=== PATIENT | female | born 1940 | race Caucasian/White ===

== ENCOUNTER 2018-03-03 15:14 | Emergency (ER) | payer OTHER ==
[~2018-03-03] VITALS: Ht 157.5 cm; Wt 39.2 kg
[~2018-03-03 15:14] MED LIST: ASPIRIN81 M1 PO; CENTURY PO; CLONIDINE HCL0.1 MG PO; Combivent IH; DELTASONE20 MG PO; Dulcolax PO; Dulcolax PR; EFFEXOR75 MG PO; Ecotrin PO; FLOVENT INHALER; FOLVITE1 M1 PO; Feosol PO; Flonase BOTH NARES; GLIPIZIDE5 M1 PO; INDERAL20 MG PO; Inderal PO; KLOR-CON M2020 MEQ PO; KlonoPIN PO; LASIX20 MG PO; LIDODERM 5% P1 PATCH TD; LOPID600 M1 PO; LOVENOX40 MG/0.4 SC; Levaquin PO; METFORMIN HCL1000 MG PO; Maalox, Mylanta PO; Milk Of Magnesia,MOM PO; NEXIUM40 MG PO; NORVASC10 MG PO; OYST-CAL D, OS500 M1 PO; OxyCONTIN PO; PRILOSEC OTC20 M1 PO; PROMETHAZINE HC25 M1 PO; PROTONIX40 MG PO; PROVENTIL17 GM IH; Proventil,Ventolin H IH; REVATIO20 MG PO; Remove Lidoderm Patc TD; Robitussin DM PO; SENOKOT S,PE1 TABLET PO; SPIRIVA1 INHALATI IH; Singulair PO; THERAGRAN1 TABLET PO; TRAMADOL HCL50 MG PO; TYLENOL EXTRA500 MG PO; Tessalon Perle PO; Tylenol Regular Stre PO; ULTRAM50 MG PO; Vitamin B Complex PO; XANAX0.5 MG PO; ZANTAC300 MG PO; Zestril,Prinivil PO; [UNRECOGNIZED DRUG - OTHER]; celeXA PO; oxyCODONE PO
[2018-03-03 15:55] LABS: BASOPHIL (%) 0.6 % (0-1); BASOPHIL COUNT 0.1 K/uL (0-0.1); EOSINOPHIL (%) 1.7 % (0-5); EOSINOPHIL COUNT 0.1 K/uL (0-0.3); HEMATOCRIT 40.9 % (36.0-46.0); HEMOGLOBIN 13.7 G/DL (11.9-15.5); IMMATURE GRANULOCYTE (%) 0.7 % (0.0-0.7); LYMPHOCYTE (%) 13.6 % (15-42); LYMPHOCYTE COUNT 1.1 K/uL (1.0-2.8); MCH 30.7 PG (29.0-34.0); MCHC 33.5 G/DL (30.0-36.0); MCV 91.7 FL (83-99); MONOCYTE (%) 14.7 % (3-12); MONOCYTE COUNT 1.2 K/uL (0-0.8); NEUTROPHIL (%) 68.7 % (45-76); NEUTROPHIL COUNT 5.7 K/uL (1.8-6.4); PLATELET COUNT 230 K/uL (156-360); RBC DIS.WIDTH-CV 14.5 % (11.8-14.6); RBC DIS.WIDTH-SD 48.3 % (39-53); RED BLOOD COUNT 4.46 M/uL (3.80-5.20); WHITE BLOOD COUNT 8.3 K/uL (4.1-10.2)
[2018-03-03 16:05] LABS: ALBUMIN 3.8 g/dL (3.2-4.8); CHLORIDE 103 mEq/L (99-109); POTASSIUM 4.9 mEq/L (3.7-5.4); SODIUM 134 mEq/L (136-147)
[2018-03-03 16:06] LABS: MAGNESIUM 2.2 mg/dL (1.3-2.7)
[2018-03-03 16:08] LABS: GLUCOSE 105 mg/dL (70-99); TOTAL PROTEIN 6.5 g/dL (6.4-8.3)
[2018-03-03 16:10] LABS: TOTAL BILIRUBIN 0.4 mg/dL (0.0-1.0)
[2018-03-03 16:11] LABS: ALKALINE PHOSPHATASE 55 IU/L (3-129)
[2018-03-03 16:12] LABS: CREATININE 0.8 mg/dL (0.6-1.3); GFR ESTIMATE (CALCULATED) > 59 mL/min/
[2018-03-03 16:13] LABS: AST (GOT) 91 IU/L (2-34); UREA NITROGEN (BUN) 24 mg/dL (9-23)
[2018-03-03 16:14] LABS: ALT (GPT) 38 IU/L (3-49)
[2018-03-03 16:17] LABS: TROP-I INTERPRETATION NEGATIVE; TROPONIN-I 0.02 ng/mL (0.0-0.30)
[2018-03-03 17:31] LABS: THYROTROPIN (TSH) 1.9 MIU/L (0.4-5.5)
[2018-03-03 17:55] LABS: APPEARANCE SL.HAZY ((CLEAR)); BILIRUBIN NEGATIVE; BLOOD NEGATIVE; COLOR YELLOW ((YELLOW)); GLUCOSE (STRIP) NEGATIVE; KETONES NEGATIVE; LEUKOCYTES TRACE; NITRITE NEGATIVE; PROTEIN (STRIP) 30; UROBILINOGEN 0.2 MG/DL (0.2-1.0)
[2018-03-03 18:09] LABS: BACTERIA NONE SEEN /HPF; EPITHELIAL CELLS RARE /HPF; HYALINE CASTS 0-5 /LPF; MUCUS NONE SEEN /LPF; RED BLOOD CELLS 0-5 /HPF (0-5); UCUL ADDED? YES
[2018-03-03 23:14] VITALS: BP 154/99
== END 2018-03-03 23:17 | disposition home or self-care (01) ==
LOC: EME 15:14
PROVIDERS: Emergency Medicine
DX: M79.605 Pain in left leg (principal); M79.604 Pain in right leg; R53.1 Weakness; R05 Cough; L89.159 Pressure ulcer of sacral region, unspecified stage; K63.89 Other specified diseases of intestine; K57.30 Diverticulosis of large intestine without perforation or abscess without bleeding; N28.9 Disorder of kidney and ureter, unspecified; I70.0 Atherosclerosis of aorta; M48.061 Spinal stenosis, lumbar region without neurogenic claudication; M51.36 Other intervertebral disc degeneration, lumbar region; I51.7 Cardiomegaly; R94.31 Abnormal electrocardiogram [ECG] [EKG]; Z90.710 Acquired absence of both cervix and uterus; J44.9 Chronic obstructive pulmonary disease, unspecified; F41.9 Anxiety disorder, unspecified; F17.200 Nicotine dependence, unspecified, uncomplicated; Z79.82 Long term (current) use of aspirin; Z79.01 Long term (current) use of anticoagulants; Z88.8 Allergy status to other drugs, medicaments and biological substances
CPT/HCPCS: 71046; 72132; 74177; 80053; 81003; 83605; 83735; 84443; 84484; 85025; 87077; 87086; 87186; 93005; 93970; 99281; 99285; J7040

== ENCOUNTER 2018-03-10 21:19 | Inpatient (IN) | payer OTHER ==
[~2018-03-10] VITALS: Ht 157.5 cm; Wt 37.9 kg
[~2018-03-10 21:19] MED LIST changes: +ASPIR 8181 M1 PO; -Ecotrin PO
[2018-03-11 02:14] LABS: HEMATOCRIT 42.3 % (36.0-46.0); HEMOGLOBIN 14.3 G/DL (11.9-15.5); MCHC 33.8 G/DL (30.0-36.0); MCV 91.6 FL (83-99); PLATELET COUNT 184 K/uL (156-360); RBC DIS.WIDTH-CV 15.5 % (11.8-14.6); RBC DIS.WIDTH-SD 50.8 % (39-53); RED BLOOD COUNT 4.62 M/uL (3.80-5.20); WHITE BLOOD COUNT 8.3 K/uL (4.1-10.2)
[2018-03-11 02:21] LABS: CHLORIDE 106 mEq/L (99-109); POTASSIUM 4.7 mEq/L (3.7-5.4); SODIUM 137 mEq/L (136-147)
[2018-03-11 02:23] LABS: GLUCOSE 105 mg/dL (70-99)
[2018-03-11 02:27] LABS: CREATININE 0.8 mg/dL (0.6-1.3); GFR ESTIMATE (CALCULATED) > 59 mL/min/
[2018-03-11 02:28] LABS: UREA NITROGEN (BUN) 37 mg/dL (9-23)
[2018-03-11 02:31] LABS: CREATINE KINASE 2096 IU/L (1-294)
[2018-03-11 05:35] VITALS: BP 175/85
[2018-03-11 07:08] LABS: HEMATOCRIT 40.6 % (36.0-46.0); HEMOGLOBIN 13.4 G/DL (11.9-15.5); MCH 30.8 PG (29.0-34.0); MCV 93.3 FL (83-99); PLATELET COUNT 173 K/uL (156-360); RBC DIS.WIDTH-CV 15.7 % (11.8-14.6); RBC DIS.WIDTH-SD 52.6 % (39-53); RED BLOOD COUNT 4.35 M/uL (3.80-5.20)
[2018-03-11 07:19] VITALS: BP 145/79
[2018-03-11 07:39] LABS: ALKALINE PHOSPHATASE 44 IU/L (3-129); ALT (GPT) 58 IU/L (3-49); AST (GOT) 168 IU/L (2-34); CHLORIDE 107 MEQ/L (99-109); CREATININE 0.6 MG/DL (0.6-1.3); GFR ESTIMATE (CALCULATED) > 59 mL/min/; POTASSIUM 4.8 MEQ/L (3.7-5.4); SODIUM 136 MEQ/L (136-147); TOTAL BILIRUBIN 0.3 MG/DL (0.0-1.0); TOTAL PROTEIN 4.9 G/DL (6.4-8.3); UREA NITROGEN (BUN) 32 mg/dL (9-23)
[2018-03-11 07:43] LABS: GLUCOSE 72 mg/dL (70-99)
[2018-03-11 08:34] LABS: TOTAL CK 1758 IU/L (1-294)
[2018-03-11 08:39] LABS: CREATINE KINASE 1758 IU/L (1-294)
[2018-03-11 10:14] LABS: CKMB RELATIVE INDEX 1.3 (0.0-3.9)
[2018-03-11 10:16] LABS: CK-MB 23.5 ng/mL (0.0-4.9)
[2018-03-11] MEDS ORDERED: FOSAMAX70 MG PO (11:32)
[2018-03-11] MEDS ORDERED: ASTEPRO 0.15%30 ML BOTH NARES (11:33)
[2018-03-11] MEDS ORDERED: VITAMIN B-12500 MC5 SL (11:34)
[2018-03-11] MEDS ORDERED: CENTRUM ADULTS1 EACH PO (11:34)
[2018-03-11] MEDS ORDERED: KLONOPIN0.5 M1 PO (11:35)
[2018-03-11] MEDS ORDERED: ROBITUSSIN DM118 ML PO (11:38)
[2018-03-11] MEDS ORDERED: CYMBALTA20 MG PO (11:39)
[2018-03-11] MEDS ORDERED: FLOVENT DISKUS1 DIS1 IH (11:40)
[2018-03-11] MEDS ORDERED: FLONASE16 G1 BOTH NARES (11:40)
[2018-03-11] MEDS ORDERED: ZYRTEC10 M3 PO (11:41)
[2018-03-11] MEDS ORDERED: COZAAR100 MG PO (11:41)
[2018-03-11] MEDS ORDERED: NICODERM CQ1 EAC1 TD (11:42)
[2018-03-11] MEDS ORDERED: PROMETHAZINE HC25 M1 PO (11:43)
[2018-03-11] MEDS ORDERED: PROAIR HFA8.5 GM IH (11:43)
[2018-03-11] MEDS ORDERED: ULTRAM50 MG PO (11:44)
[2018-03-11] MEDS ORDERED: VITAMIN D2000 UNI1 PO (11:45)
[2018-03-11] MEDS ORDERED: TYLENOL REGULA325 MG PO (11:45)
[2018-03-11 13:58] VITALS: BP 168/72
[2018-03-11 16:18] VITALS: BP 147/72
[2018-03-11 20:32] VITALS: BP 117/63
[2018-03-11 23:50] VITALS: BP 145/66
[2018-03-12 03:48] VITALS: BP 106/53
[2018-03-12 05:36] LABS: HEMATOCRIT 36.8 % (36.0-46.0); HEMOGLOBIN 12.2 G/DL (11.9-15.5); MCH 30.7 PG (29.0-34.0); MCHC 33.2 G/DL (30.0-36.0); MCV 92.7 FL (83-99); PLATELET COUNT 157 K/uL (156-360); RBC DIS.WIDTH-CV 15.8 % (11.8-14.6); RBC DIS.WIDTH-SD 52.6 % (39-53); RED BLOOD COUNT 3.97 M/uL (3.80-5.20); WHITE BLOOD COUNT 6.6 K/uL (4.1-10.2)
[2018-03-12 05:51] LABS: ALBUMIN 2.8 G/DL (3.2-4.8); ALKALINE PHOSPHATASE 47 IU/L (3-129); ALT (GPT) 51 IU/L (3-49); AST (GOT) 155 IU/L (2-34); CHLORIDE 110 MEQ/L (99-109); CREATININE 0.5 MG/DL (0.6-1.3); GFR ESTIMATE (CALCULATED) > 59 mL/min/; POTASSIUM 4.1 MEQ/L (3.7-5.4); SODIUM 136 MEQ/L (136-147); TOTAL BILIRUBIN 0.3 MG/DL (0.0-1.0); TOTAL PROTEIN 4.6 G/DL (6.4-8.3); UREA NITROGEN (BUN) 22 mg/dL (9-23)
[2018-03-12 05:54] LABS: GLUCOSE 118 mg/dL (70-99)
[2018-03-12 05:55] LABS: CREATINE KINASE 1572 IU/L (1-294)
[2018-03-12 07:08] LABS: TOTAL CK 1572 IU/L (1-294)
[2018-03-12 07:17] LABS: CKMB RELATIVE INDEX 1.5 (0.0-3.9)
[2018-03-12 07:19] LABS: CK-MB 23.2 ng/mL (0.0-4.9)
[2018-03-12 08:18] VITALS: BP 138/71
[2018-03-12 11:59] VITALS: BP 110/72
[2018-03-12 16:52] VITALS: BP 135/72
[2018-03-12 20:25] VITALS: BP 140/70
[2018-03-13] VITALS (7 sets, daily range): BP systolic 126–142; BP diastolic 60–87
[2018-03-13 05:18] LABS: CK-MB 13.2 ng/mL (0.0-4.9)
[2018-03-13 05:23] LABS: CKMB RELATIVE INDEX 0.8 (0.0-3.9); TOTAL CK 1598 IU/L (1-294)
[2018-03-13 05:28] LABS: CREATINE KINASE 1598 IU/L (1-294)
[2018-03-13 13:40] LABS: C-REACTIVE PROTEIN 3.9 MG/L (0-10)
[2018-03-14] VITALS (7 sets, daily range): BP systolic 126–149; BP diastolic 62–84
[2018-03-14 11:33] LABS: CREATINE KINASE 1686 IU/L (1-294)
[2018-03-14] MEDS ORDERED: ULTRAM50 MG PO (12:29)
[2018-03-14] MEDS ORDERED: STIOLTO RESPIMAT4 GM IH (12:29)
[2018-03-14] MEDS ORDERED: PREDNISONE20 MG PO (12:29)
[2018-03-14] MEDS ORDERED: MIRTAZAPINE7.5 MG PO (12:29)
[2018-03-14] MEDS ORDERED: KLONOPIN0.5 M1 PO (12:29)
[2018-03-14 12:59] LABS: CHLORIDE 105 mEq/L (99-109); POTASSIUM 4.5 mEq/L (3.7-5.4); SODIUM 132 mEq/L (136-147)
[2018-03-14 13:01] LABS: GLUCOSE 105 mg/dL (70-99)
[2018-03-14 13:05] LABS: CREATININE 0.6 mg/dL (0.6-1.3); GFR ESTIMATE (CALCULATED) > 59 mL/min/; UREA NITROGEN (BUN) 22 mg/dL (9-23)
[2018-03-15 04:59] VITALS: BP 136/68
[2018-03-15 05:51] LABS: HEMATOCRIT 35.4 % (36.0-46.0); HEMOGLOBIN 11.8 G/DL (11.9-15.5); MCH 30.6 PG (29.0-34.0); MCHC 33.3 G/DL (30.0-36.0); MCV 91.7 FL (83-99); PLATELET COUNT 151 K/uL (156-360); RBC DIS.WIDTH-CV 15.9 % (11.8-14.6); RBC DIS.WIDTH-SD 51.8 % (39-53); RED BLOOD COUNT 3.86 M/uL (3.80-5.20); WHITE BLOOD COUNT 6.5 K/uL (4.1-10.2)
[2018-03-15 06:22] LABS: CHLORIDE 104 MEQ/L (99-109); CREATINE KINASE 1412 IU/L (1-294); CREATININE 0.5 MG/DL (0.6-1.3); GFR ESTIMATE (CALCULATED) > 59 mL/min/; GLUCOSE 78 mg/dL (70-99); POTASSIUM 4.5 MEQ/L (3.7-5.4); SODIUM 134 MEQ/L (136-147); UREA NITROGEN (BUN) 24 mg/dL (9-23)
[2018-03-15 07:51] VITALS: BP 150/67
[2018-03-15 11:37] VITALS: BP 138/79
[2018-03-15 16:00] VITALS: BP 119/62
[2018-03-15 19:17] VITALS: BP 149/70
[2018-03-15 23:06] VITALS: BP 125/77
[2018-03-16 05:32] VITALS: BP 150/67
[2018-03-16 07:55] VITALS: BP 157/69
[2018-03-16 12:05] VITALS: BP 138/61
[2018-03-16 20:32] VITALS: BP 132/68
[2018-03-17 00:08] VITALS: BP 149/63
[2018-03-17 04:02] VITALS: BP 131/60
[2018-03-17 08:56] VITALS: BP 142/80
[2018-03-17 10:26] LABS: HEMATOCRIT 35.3 % (36.0-46.0); HEMOGLOBIN 11.5 G/DL (11.9-15.5); MCH 30.2 PG (29.0-34.0); MCHC 32.6 G/DL (30.0-36.0); MCV 92.7 FL (83-99); PLATELET COUNT 169 K/uL (156-360); RBC DIS.WIDTH-CV 16.5 % (11.8-14.6); RBC DIS.WIDTH-SD 55.9 % (39-53); RED BLOOD COUNT 3.81 M/uL (3.80-5.20); WHITE BLOOD COUNT 9.2 K/uL (4.1-10.2)
[2018-03-17 10:56] LABS: ALBUMIN 2.7 G/DL (3.2-4.8); ALKALINE PHOSPHATASE 55 IU/L (3-129); AST (GOT) 204 IU/L (2-34); CHLORIDE 103 MEQ/L (99-109); CREATININE 0.5 MG/DL (0.6-1.3); GFR ESTIMATE (CALCULATED) > 59 mL/min/; POTASSIUM 4.5 MEQ/L (3.7-5.4); SODIUM 134 MEQ/L (136-147); TOTAL PROTEIN 4.9 G/DL (6.4-8.3); UREA NITROGEN (BUN) 20 mg/dL (9-23)
[2018-03-17 11:07] LABS: ALT (GPT) 124 IU/L (3-49); GLUCOSE 106 mg/dL (70-99); TOTAL BILIRUBIN 0.4 MG/DL (0.0-1.0)
[2018-03-17 11:41] VITALS: BP 138/78
[2018-03-17] MEDS ORDERED: PREDNISONE10 MG PO (12:28)
[2018-03-17] MEDS ORDERED: MIRALAX17 GM PO (12:29)
[2018-03-17] MEDS ORDERED: COLACE100 MG PO (12:29)
[2018-03-17 16:00] VITALS: BP 155/81
== END 2018-03-17 16:46 | DRG 558 ==
LOC: EME 21:19 → ENRESERV 03-11 03:01 → 3EAST 03-11 03:01 → EDOF 03-11 03:01 → ENRESERV 03-11 03:12 → 3EAST 03-11 04:39
PROVIDERS: Emergency Medicine; Hospitalist; Internal Medicine
DX: M62.82 Rhabdomyolysis (principal); R64 Cachexia; E44.0 Moderate protein-calorie malnutrition; F17.200 Nicotine dependence, unspecified, uncomplicated; G47.00 Insomnia, unspecified; Z68.1 Body mass index [BMI] 19.9 or less, adult; K21.9 Gastro-esophageal reflux disease without esophagitis; Z85.43 Personal history of malignant neoplasm of ovary; J44.9 Chronic obstructive pulmonary disease, unspecified; R91.1 Solitary pulmonary nodule; F32.9 Major depressive disorder, single episode, unspecified; I10 Essential (primary) hypertension; I70.203 Unspecified atherosclerosis of native arteries of extremities, bilateral legs
CPT/HCPCS: 71250; 80048; 80053; 80076; 82550; 82550 91; 82553; 85027; 85651; 86140; 93925; 94640; 94640 76; 97530 GP; 99202; 99281; 99285; A6214; J1644; J7030; J7512; Q0169